=== PATIENT | female | born 1935 | race African-American/Black ===

== ENCOUNTER 2022-10-23 12:07 | Inpatient (IN) | payer OTHER ==
[~2022-10-23] VITALS: Ht 121.9 cm; Wt 40.4 kg
[2022-10-23] MEDS ORDERED: SODIUM CHLORIDE 0.9% 250 ML IV ONE ×2 (13:30→14:30)
[2022-10-23 14:50] LABS: BASOPHILS % 0.6 % (0.0-2.0); EOSINOPHILS % 0.1 % (0.0-5.0); HEMATOCRIT. 46.6 % (36.0-48.0); HEMOGLOBIN. 15.1 g/dL (12.0-16.0); LYMPHOCYTES % 13.2 % (20.0-50.0); MEAN CORPUSCULAR HEMOGLOBIN 27.5 pg (28.0-32.0); MONOCYTES % 9.4 % (2.0-8.0); NEUTROPHILS % 76.7 % (40.0-76.0); RED BLOOD CELL COUNT 5.48 mill/uL (4.2-5.4); RED CELL DISTRIBUTION WIDTH 15.6 % (11.6-14.6)
[2022-10-23 14:55] LABS: CHLORIDE 99 mEq/L (98-107)
[2022-10-23 15:18] LABS: PLATELET 65 x1000/uL (130-400)
[2022-10-23] MEDS ORDERED: ACETAMINOPHEN 325MG TABLET PO PRN ×2 (18:30)
[2022-10-23] MEDS ORDERED: DOCUSATE SODIUM 100MG CAPSULE PO PRN (18:30)
[2022-10-23] MEDS ORDERED: CLONIDINE 0.1MG TABLET PO PRN (18:30)
[2022-10-23] MEDS ORDERED: IPRATROPIUM/ALBUTEROL 0.5-3(2.5)MG/3ML NEB HHN PRN (18:30)
[2022-10-23] MEDS ORDERED: HYDROCODONE/ACETAMINOPHEN 5/325MG TABLET PO PRN (18:30)
[2022-10-23] MEDS ORDERED: ONDANSETRON HCL 4MG/2ML INJ IV PRN (18:30)
[2022-10-23] MEDS ORDERED: LORAZEPAM 0.5MG TABLET PO PRN (18:30)
[2022-10-23] MEDS ORDERED: NALOXONE HCL 0.4MG/ML VIAL IV PRN (19:00)
[2022-10-23 20:22] LABS: CLARITY URINE TURBID (CLEAR); COLOR URINE DARK YELLOW (YELLOW); KETONES URINE TRACE (NEGATIVE); LEUKOCYTE ESTERASE URINE 3+ (NEGATIVE); NITRITE URINE NEGATIVE (NEGATIVE); OCCULT BLOOD URINE 1+ (NEGATIVE); PH URINE 5.5 (4.5-8.0); PROTEIN URINE 2+ (NEGATIVE); SPECIFIC GRAVITY URINE 1.016 (1.005-1.030)
[2022-10-23 23:20] VITALS: BP 113/57
[2022-10-23 23:30] VITALS: BP 113/57
[2022-10-24] MEDS ORDERED: AMLO5TAB88 PO (00:42)
[2022-10-24] MEDS ORDERED: PRAV80TA21 PO (00:42)
[2022-10-24] MEDS ORDERED: OMEP20CA14 PO (00:42)
[2022-10-24] MEDS ORDERED: FURO-151 PO (00:42)
[2022-10-24 04:00] VITALS: BP 138/66
[2022-10-24 06:41] LABS: BASOPHILS % 0.6 % (0.0-2.0); EOSINOPHILS % 0.6 % (0.0-5.0); HEMOGLOBIN. 14.7 g/dL (12.0-16.0); LYMPHOCYTES % 29.4 % (20.0-50.0); MEAN CORPUSCULAR HEMOGLOBIN 27.4 pg (28.0-32.0); MEAN CORPUSCULAR VOLUME 85.3 fL (81.0-99.0); MONOCYTES % 13.7 % (2.0-8.0); NEUTROPHILS % 55.7 % (40.0-76.0); RED BLOOD CELL COUNT 5.39 mill/uL (4.2-5.4); RED CELL DISTRIBUTION WIDTH 15.1 % (11.6-14.6)
[2022-10-24 08:00] VITALS: BP 156/64
[2022-10-24] MEDS: ASPIRIN 81MG TABLET PO SCH (09:00)
[2022-10-24 12:00] VITALS: BP 156/64
[2022-10-24 13:59] LABS: MEAN PLATELET VOLUME 11.4 fl (7.4-10.4); PLATELET 69 x1000/uL (130-400)
[2022-10-24] MEDS: CEFTRIAXONE 1,000 MG in DEXTROSE 5% WATER 50 ML IV SCH (14:49)
[2022-10-24 16:00] VITALS: BP 123/57
[2022-10-24] MEDS: OMEPRAZOLE 20MG CAPSULE EXTENDED RELEASE PO SCH (17:09)
[2022-10-24 20:00] VITALS: BP 138/69
[2022-10-24] MEDS: ATORVASTATIN CALCIUM 20MG TABLET PO SCH (20:42)
[2022-10-24 22:22] LABS: HEPATITIS B SURFACE ANTIGEN NEGATIVE
[2022-10-25] VITALS (15 sets, daily range): BP systolic 107–168; BP diastolic 47–94
[2022-10-25 07:15] LABS: BASOPHILS % 0.7 % (0.0-2.0); EOSINOPHILS % 0.9 % (0.0-5.0); HEMATOCRIT. 42.4 % (36.0-48.0); HEMOGLOBIN. 13.8 g/dL (12.0-16.0); LYMPHOCYTES % 20.1 % (20.0-50.0); MEAN CORPUSCULAR HEMOGLOBIN 27.5 pg (28.0-32.0); MEAN CORPUSCULAR VOLUME 84.2 fL (81.0-99.0); MONOCYTES % 13.8 % (2.0-8.0); NEUTROPHILS % 64.5 % (40.0-76.0); RED BLOOD CELL COUNT 5.04 mill/uL (4.2-5.4); RED CELL DISTRIBUTION WIDTH 15.4 % (11.6-14.6)
[2022-10-25 07:59] LABS: CHLORIDE 97 mEq/L (98-107)
[2022-10-25 08:11] LABS: PHOSPHORUS 6.6 mg/dL (2.5-4.9)
[2022-10-25] MEDS ORDERED: AMLODIPINE 5MG TABLET PO SCH (09:00)
[2022-10-25] MEDS: ASPIRIN 81MG TABLET PO SCH (09:29)
[2022-10-25] MEDS: FUROSEMIDE 40MG TABLET PO SCH (09:29)
[2022-10-25] MEDS: OMEPRAZOLE 20MG CAPSULE EXTENDED RELEASE PO SCH ×2 (09:29→17:59)
[2022-10-25] MEDS ORDERED: ASPI-1160 PO (11:52)
[2022-10-25] MEDS ORDERED: CALC667C PO (11:52)
[2022-10-25 12:13] LABS: MEAN PLATELET VOLUME 10.7 fl (7.4-10.4); PLATELET 90 x1000/uL (130-400)
[2022-10-25] MEDS: CALCIUM ACETATE 667MG CAPSULE PO SCH ×2 (15:04→17:59)
[2022-10-25] MEDS: CEFTRIAXONE 1,000 MG in DEXTROSE 5% WATER 50 ML IV SCH (15:04)
[2022-10-25] MEDS: ATORVASTATIN CALCIUM 20MG TABLET PO SCH (21:22)
[2022-10-26] VITALS (7 sets, daily range): BP systolic 118–133; BP diastolic 62–69
[2022-10-26] MEDS: OMEPRAZOLE 20MG CAPSULE EXTENDED RELEASE PO SCH (06:26)
[2022-10-26 06:43] LABS: BASOPHILS % 0.5 % (0.0-2.0); EOSINOPHILS % 1.5 % (0.0-5.0); HEMATOCRIT. 39.6 % (36.0-48.0); HEMOGLOBIN. 12.9 g/dL (12.0-16.0); MEAN CORPUSCULAR HEMOGLOBIN 27.5 pg (28.0-32.0); MEAN CORPUSCULAR VOLUME 84.4 fL (81.0-99.0); MEAN PLATELET VOLUME 10.7 fl (7.4-10.4); MONOCYTES % 13.3 % (2.0-8.0); NEUTROPHILS % 65.7 % (40.0-76.0); PLATELET 77 x1000/uL (130-400); RED BLOOD CELL COUNT 4.69 mill/uL (4.2-5.4); RED CELL DISTRIBUTION WIDTH 14.8 % (11.6-14.6)
[2022-10-26 07:26] LABS: PHOSPHORUS 4.7 mg/dL (2.5-4.9)
[2022-10-26] MEDS ORDERED: AMLODIPINE 2.5MG TABLET PO SCH (10:00)
[2022-10-26] MEDS: CALCIUM ACETATE 667MG CAPSULE PO SCH (11:44)
[2022-10-26] MEDS: FUROSEMIDE 40MG TABLET PO SCH (11:44)
[2022-10-26] MEDS: ASPIRIN 81MG TABLET PO SCH (11:44)
[2022-10-26] MEDS: CEFTRIAXONE 1,000 MG in DEXTROSE 5% WATER 50 ML IV SCH (13:32)
[2022-10-26] MEDS ORDERED: LEVO250T74 MT (15:18)
== END 2022-10-26 17:17 | disposition home or self-care (01) | DRG 280 ==
LOC: ER 12:09 → 8WST 17:21 → EDBEDREQTM 17:24 → EDBEDREQ 17:24 → ENRESERV 19:08 → CANRESERV 19:08 → ENRESERV 23:09 → 8WST 23:52
PROVIDERS: ADMIT Internal Medicine; ATTEND Internal Medicine
PROC: 5A1D70Z Performance of Urinary Filtration, Intermittent, Less than 6 Hours Per Day (ICD-10-PCS; principal; 2022-10-25)
DX: I21.4 Non-ST elevation (NSTEMI) myocardial infarction (principal); E43 Unspecified severe protein-calorie malnutrition; N18.6 End stage renal disease; I12.0 Hypertensive chronic kidney disease with stage 5 chronic kidney disease or end stage renal disease; N25.81 Secondary hyperparathyroidism of renal origin; N39.0 Urinary tract infection, site not specified; D69.6 Thrombocytopenia, unspecified; Z20.822 Contact with and (suspected) exposure to COVID-19; E78.00 Pure hypercholesterolemia, unspecified; K21.9 Gastro-esophageal reflux disease without esophagitis; F03.90 Unspecified dementia, unspecified severity, without behavioral disturbance, psychotic disturbance, mood disturbance, and anxiety; E83.39 Other disorders of phosphorus metabolism; I48.91 Unspecified atrial fibrillation; J44.9 Chronic obstructive pulmonary disease, unspecified; K57.90 Diverticulosis of intestine, part unspecified, without perforation or abscess without bleeding; N20.0 Calculus of kidney; Z86.73 Personal history of transient ischemic attack (TIA), and cerebral infarction without residual deficits; Z79.899 Other long term (current) drug therapy; Z87.11 Personal history of peptic ulcer disease; Z99.2 Dependence on renal dialysis; Z82.49 Family history of ischemic heart disease and other diseases of the circulatory system; Z68.27 Body mass index [BMI] 27.0-27.9, adult
CPT/HCPCS: 36415; 71045; 80048; 80053; 81003; 83605; 83735; 83880; 84100; 84484; 85025; 86705; 86709; 86803; 87077; 87186; 87340; 87426; 90935; 93005; 93306; 97162; 99291; J0696; J7050; J7060

== ENCOUNTER 2022-11-18 21:10 | Emergency (ER) | payer OTHER ==
[~2022-11-18] VITALS: Ht 162.6 cm; Wt 46.0 kg
[~2022-11-18 21:10] MED LIST: AMLO5TAB88 PO; ASPI-1160 PO; CALC667C PO; FURO-151 PO; LEVO250T74 MT; OMEP20CA14 PO; PRAV80TA21 PO
[2022-11-18 23:05] LABS: BASOPHILS % 0.2 % (0.0-2.0); EOSINOPHILS % 0.1 % (0.0-5.0); HEMATOCRIT. 43.5 % (36.0-48.0); MEAN CORPUSCULAR HEMOGLOBIN 26.8 pg (28.0-32.0); MEAN PLATELET VOLUME 10.5 fl (7.4-10.4); NEUTROPHILS % 83.7 % (40.0-76.0); PLATELET 85 x1000/uL (130-400); RED BLOOD CELL COUNT 5.24 mill/uL (4.2-5.4); RED CELL DISTRIBUTION WIDTH 15.7 % (11.6-14.6)
[2022-11-18 23:13] LABS: CHLORIDE 95 mEq/L (98-107)
[2022-11-18] MEDS ORDERED: ASPIRIN 325MG TABLET PO ONE (23:30)
[2022-11-19 09:13] VITALS: BP 140/60
== END 2022-11-19 10:14 | disposition short-term general hospital (02) ==
LOC: ER 21:10
DX: I21.4 Non-ST elevation (NSTEMI) myocardial infarction (principal); D69.6 Thrombocytopenia, unspecified; N18.6 End stage renal disease; I48.91 Unspecified atrial fibrillation; K21.9 Gastro-esophageal reflux disease without esophagitis; E78.00 Pure hypercholesterolemia, unspecified; I10 Essential (primary) hypertension; Z79.899 Other long term (current) drug therapy; Z20.822 Contact with and (suspected) exposure to COVID-19
CPT/HCPCS: 36415; 71045; 80053; 83880; 84484; 85025; 87426; 93005; 99291; C9803

== ENCOUNTER 2022-12-01 02:27 | Emergency (ER) | payer OTHER ==
[~2022-12-01] VITALS: Ht 162.6 cm; Wt 50.0 kg
[2022-12-01 03:22] LABS: BASOPHILS % 0.7 % (0.0-2.0); EOSINOPHILS % 0.6 % (0.0-5.0); HEMATOCRIT. 36.2 % (36.0-48.0); HEMOGLOBIN. 11.8 g/dL (12.0-16.0); LYMPHOCYTES % 16.5 % (20.0-50.0); MEAN CORPUSCULAR HEMOGLOBIN 26.6 pg (28.0-32.0); MEAN CORPUSCULAR VOLUME 81.5 fL (81.0-99.0); MEAN PLATELET VOLUME 9.8 fl (7.4-10.4); MONOCYTES % 8.1 % (2.0-8.0); NEUTROPHILS % 74.1 % (40.0-76.0); PLATELET 83 x1000/uL (130-400); RED BLOOD CELL COUNT 4.44 mill/uL (4.2-5.4); RED CELL DISTRIBUTION WIDTH 16.4 % (11.6-14.6)
[2022-12-01 03:36] LABS: CHLORIDE 100 mEq/L (98-107)
[2022-12-01] MEDS ORDERED: CEFTRIAXONE 1 G PREMIX 50 ML IV ONE (04:00)
[2022-12-01] MEDS ORDERED: AZITHROMYCIN 500MG/250ML 250 ML IV ONE (04:00)
[2022-12-01 07:52] VITALS: BP 153/68
== END 2022-12-01 08:41 | disposition short-term general hospital (02) ==
LOC: ER 02:27 → CANBEDREQ 16:37
DX: J18.9 Pneumonia, unspecified organism (principal); N17.9 Acute kidney failure, unspecified; I13.2 Hypertensive heart and chronic kidney disease with heart failure and with stage 5 chronic kidney disease, or end stage renal disease; N18.6 End stage renal disease; I50.9 Heart failure, unspecified; K21.9 Gastro-esophageal reflux disease without esophagitis; I48.91 Unspecified atrial fibrillation; E78.00 Pure hypercholesterolemia, unspecified; Z20.822 Contact with and (suspected) exposure to COVID-19; Z99.2 Dependence on renal dialysis; Z79.01 Long term (current) use of anticoagulants
CPT/HCPCS: 36415; 71045; 80053; 83605; 84484; 85025; 87040; 87426; 93005; 96365; 96367; 99285; C9803; J0456; J0696

== ENCOUNTER 2023-02-06 01:58 | Emergency (ER) | payer OTHER ==
[~2023-02-06] VITALS: Ht 160 cm; Wt 58.0 kg
[2023-02-06] MEDS ORDERED: DEXTROSE 50% WATER 50ML SYRINGE IV ONE ×2 (02:00→07:45)
[2023-02-06] MEDS ORDERED: DEXTROSE 50% WATER 50ML SYRINGE IV NR (02:15)
[2023-02-06] MEDS ORDERED: DEXT 10% WATER 1,000 ML IV ONE (02:15)
[2023-02-06 02:27] LABS: BASOPHILS % 0.5 % (0.0-2.0); EOSINOPHILS % 0.1 % (0.0-5.0); HEMATOCRIT. 36.7 % (36.0-48.0); HEMOGLOBIN. 11.9 g/dL (12.0-16.0); LYMPHOCYTES % 17.2 % (20.0-50.0); MEAN CORPUSCULAR HEMOGLOBIN 29.1 pg (28.0-32.0); MEAN CORPUSCULAR VOLUME 89.5 fL (81.0-99.0); MEAN PLATELET VOLUME 10.2 fl (7.4-10.4); NEUTROPHILS % 77.2 % (40.0-76.0); PLATELET 52 x1000/uL (130-400); RED CELL DISTRIBUTION WIDTH 18.4 % (11.6-14.6)
[2023-02-06 02:36] LABS: CHLORIDE 99 mEq/L (98-107)
[2023-02-06 05:59] LABS: CLARITY URINE CLOUDY (CLEAR); COLOR URINE DARK YELLOW (YELLOW); KETONES URINE TRACE (NEGATIVE); LEUKOCYTE ESTERASE URINE 1+ (NEGATIVE); NITRITE URINE NEGATIVE (NEGATIVE); OCCULT BLOOD URINE NEGATIVE (NEGATIVE); PROTEIN URINE 2+ (NEGATIVE); SPECIFIC GRAVITY URINE 1.017 (1.005-1.030)
[2023-02-06 08:21] VITALS: BP 175/82
== END 2023-02-06 09:38 | disposition short-term general hospital (02) ==
LOC: ER 02:02
DX: E11.649 Type 2 diabetes mellitus with hypoglycemia without coma (principal); G93.40 Encephalopathy, unspecified; N19 Unspecified kidney failure; I48.91 Unspecified atrial fibrillation; K21.9 Gastro-esophageal reflux disease without esophagitis; E78.00 Pure hypercholesterolemia, unspecified; Z20.822 Contact with and (suspected) exposure to COVID-19; Z79.82 Long term (current) use of aspirin
CPT/HCPCS: 36415; 70450; 71045; 80053; 81003; 82962; 83605; 83690; 84484; 85025; 87040; 87426; 93005; 99291; C9803